=== PATIENT | female | born 1985 | race Caucasian/White ===

== ENCOUNTER 2016-03-21 17:29 | Emergency (ER) | payer OTHER, SELFPAY ==
--- NOTE | 2016-03-21 18:39 | ERRECORD ---
[facility] EMERGENCY RECORD HPI EYE COMPLAINT (18:12 BPIC) CHIEF COMPLAINT: Patient presents for evaluation of redness, to the right eye, Patient presents for evaluation of piece of metal in right eye. HISTORIAN: History provided by patient, pt was working on a car and drilling when a piece of metal fell into her eye. she was not wearing safety glasses at the time. this happened 5 days ago. sharp pain at the time. now just feels like a slight irritation and redness. ROS (18:13 BPIC) CONSTITUTIONAL: Negative constitutional review of systems. EYES: Historian reports eye pain, reports eye redness. ENT: Negative ears, nose, throat review of systems. CARDIOVASCULAR: Negative cardiovascular review of systems. RESPIRATORY: Negative respiratory review of systems. GI: Negative gastrointestinal review of systems. MUSCULOSKELETAL: Negative musculoskeletal review of systems. SKIN: Negative skin review of systems. PSYCHIATRIC: Negative psychiatric review of systems. PAST MEDICAL HISTORY MEDICAL HISTORY: Flu vaccine not up to date, Tetanus immunization up to date, Pneumococcal vaccine not up to date. PREECLAMPSIA. (SatMar 21, 2016 17:36 MDEB) FEMALE SURGICAL HISTORY: Surgical history of appendectomy, Surgical history of section X 2. (SatMar 21, 2016 17:36 MDEB) PSYCHIATRIC HISTORY: Notes: NONE. (SatMar 21, 2016 17:36 MDEB) SOCIAL HISTORY: Patient denies alcohol use, Patient denies drug use, Patient currently uses tobacco, smokes cigarettes, daily, Patient smokes 1 pack per day, Patient currently uses tobacco, smokes cigarettes, Patient smokes 1/2 packs per day, Patient denies alcohol use, Patient denies drug use, , Lives at home, with family. (SatMar 21, 2016 17:36 MDEB) NOTES: I have reviewed and agree with the PMH/PSxH/FamHx/SocHx obtained by the nurse. (18:13 BPIC) KNOWN ALLERGIES No Known Drug Allergies CURRENT MEDICATIONS No recorded medications VITAL SIGNS (17:34 MDEB) VITAL SIGNS: BP: 125/77, Pulse: 99, Resp: 20, Temp: 97.8 (Tympanic), Pain: 1, O2 sat: 100 on Room Air, Time: 03/21/2016 17:34. &a-1R&a+25V*p+0X*[id number]*c202B*c15G*c2P*p-0X&a-25V&a+1R Name: Penelope Teresa : 1985 F30 MedRec: [id number] AcctNum: [id number] Prepared: SatMar 21, 2016 21:22 by Interface Page 1 of 3 pMD [facility] EMERGENCY RECORD PHYSICAL EXAM (18:13 BPIC) CONSTITUTIONAL: Vital signs reviewed, Patient afebrile, Pulse normal, Blood pressure normal, Respiratory rate normal, Patient appears non toxic, Patient appears pain free, Patient alert and oriented to person, place and time. HEAD: Head exam included findings of head atraumatic, normocephalic. EYES: Eye exam included findings of eyelids normal to inspection, Pupils equally round and reactive to light, Extraocular muscles intact, Conjunctiva, injected on the right, Other eye unaffected, Fundoscopic exam normal, Corneal foreign body, metallic to the right eye, with slit lamp, rust ring appreciated to the right eye, on the corneal conjunctival margin at 4 o'clock. no metal remains., . ENT: Ear exam normal, Nose exam normal. NECK: Neck exam included findings of normal range of motion, Trachea midline. RESPIRATORY CHEST: Respiratory exam included findings of no respiratory distress, Chest exam included findings of chest movement symmetrical, Chest expansion equal. CARDIOVASCULAR: Cardiovascular exam included findings of heart rate regular rate and rhythm. NEURO: Neuro exam findings include patient oriented to person, place and time, Speech normal. PSYCHIATRIC: Psychiatric exam included findings of patient oriented to person place and time, Normal affect. DOCTOR NOTES (18:14 BPIC) TEXT: I discussed the diagnosis with the patient prior to discharge. All questions were answered. There is no indication for admission currently and the patient will follow up with a primary care physician. Any pertinent labs or imaging were reviewed and dicussed with the patient. If any new or emergent symptoms occur, the patient will return to the emergency department. PROBLEM LIST No recorded problems DIAGNOSIS (18:11 BPIC) FINAL: PRIMARY: rust ring in right eye. PRESCRIPTION (18:15 BPIC) Polytrim: DROPS : : OPHTHALMIC : Quantity: 2 Unit: gtt Route: OPHTHALMIC Schedule: 3 times a day Dispense: 1 May substitute. Refills: No Refills . NOTES: No Refills. DISPOSITION PATIENT: Disposition Type: Discharge, Disposition: *Discharge Home, Condition: Good. (18:11 BPIC) &a-1R&a+25V*p+0X*[id number]*c202B*c15G*c2P*p-0X&a-25V&a+1R Name: Penelope Teresa DOB: 1985 2 MedRec: [id number] AcctNum: [id number] Prepared: SatMar 21, 2016 21:22 by Interface Page 2 of 3 pMD [facility] EMERGENCY RECORD Patient left the department. (18:34 MDEB) Cagle: BPIC=MD Viviana, Sage HOGUEEB=CAPO Faith, Tamar &a-1R&a+25V*p+0X*[id number]*c202B*c15G*c2P*p-0X&a-25V&a+1R Name: Penelope Teresa : 1985 2 MedRec: [id number] AcctNum: [id number] Prepared: SatMar 21, 2016 21:22 by Interface Page 3 of 3 pMD MTDD
--- NOTE | 2016-03-21 18:50 | PICIS ---
[facility] EMERGENCY RECORD TRIAGE (SatMar 21, 2016 17:36 MDEB) PATIENT: NAME: Penelope Teresa, AGE: 30, GENDER: female, : Sat1985, TIME OF GREET: SatMar 21, 2016 17:30, PREFERRED LANGUAGE: Tristanian, RACE: WHITE, ETHNICITY: Not or , FALL RISK: NO, ECODE BILLING MAP: [facility], SSN: [id number], Zip Code: [address], KG WEIGHT: 58.51, PHONE: , , , PERSON ID: [id number], PCP: NO PCP. (SatMar 21, 2016 17:36 MDEB) TRIAGE NOTES: METAL IN R EYE FOR PAST 5 DAYS. (SatMar 21, 2016 17:36 MDEB) COMPLAINT: PIECE OF METAL IN RT EYE. (SatMar 21, 2016 17:36 MDEB) ADMISSION: URGENCY: 3 Urgent, ADMISSION SOURCE: Home, TRANSPORT: Walk-in, BED: TRIAGE. (SatMar 21, 2016 17:36 MDEB) PAIN: Patient complains of pain described as, aching, on a scale 0-10 patient rates pain as 1. (SatMar 21, 2016 17:36 MDEB) IMMUNIZATIONS: Tetanus immunization up to date. (SatMar 21, 2016 17:36 MDEB) TRIAGE SCREENING: Patient denies suicidal ideation, Patient denies presence of domestic violence. (SatMar 21, 2016 17:36 MDEB) PROVIDERS: TRIAGE NURSE: Tamar Faith RN. (SatMar 21, 2016 17:36 MDEB) VITAL SIGNS: BP 125/77, Pulse 99, Resp 20, Temp 97.8, (Tympanic), Pain 1, O2 Sat 100, on Room Air, Time 03/21/2016 17:34. (17:34 MDEB) PREVIOUS VISIT ALLERGIES: No Known Drug Allergies. (SatMar 21, 2016 17:36 MDEB) KNOWN ALLERGIES No Known Drug Allergies CURRENT MEDICATIONS No recorded medications VITAL SIGNS (17:34 MDEB) VITAL SIGNS: BP: 125/77, Pulse: 99, Resp: 20, Temp: 97.8 (Tympanic), Pain: 1, O2 sat: 100 on Room Air, Time: 03/21/2016 17:34. NURSING ASSESSMENT: EYE (17:40 MDEB) CONSTITUTIONAL: Patient arrives ambulatory, Gait steady, History obtained from patient, Patient appears, uncomfortable, Patient cooperative, Patient alert, Oriented to person, place and time, Skin warm, Skin dry, Skin normal in color, Mucous membranes pink, Mucous membranes moist, Patient is well-groomed, Patient complains of F B R EYE, METAL IN EYE FOR PAST 5 DAYS. PAIN: aching pain, on a scale 0-10 patient rates pain as 1, "UNCOMFORTABLE". EYES: Eye assessment findings include orbits normal, Eye lids normal, Conjunctiva normal, Sclera, normal on the left, injected on the right, Cornea clear, Iris normal, Pupils &a-1R&a+25V*p+0X*o4823J*c202B*c15G*c2P*p-0X&a-25V&a+1R Name: Penelope Teresa : 1985 F30 MedRec: [id number] AcctNum: [id number] Prepared: SatMar 21, 2016 21:28 by Interface Page 1 of 4 pMD [facility] EMERGENCY RECORD equally round and reactive to light, Left pupil 2 mm in size, Right pupil 2 mm in size, Associated with foreign body, metallic, to the right eye, Visual acuity performed, Left eye: 20/25, Right eye: 20/25, Both eyes: 20/25. NOTES: Emotional support needed and given, Patient tolerated procedure well. SAFETY: Cart/Stretcher in lowest position, Call light within reach, Hospital ID band on. NURSING PROCEDURE: DISCHARGE NOTE (18:20 MDEB) DISCHARGE: Patient discharged to home, ambulating without assistance, driving self, unaccompanied, Summary of Care printed/ provided, Patient requested and was provided an electronic copy of Discharge Instructions, Transition record given to patient, Discharge instructions given to patient, Prescriptions given and instructions on side effects given, Above person(s) verbalized understanding of discharge instructions and follow-up care, Patient treated and evaluated by physician. BELONGINGS: Belongings remain with patient, Valuables remain with patient. NOTES: Emotional support needed and given, Patient tolerated procedure well. HPI EYE COMPLAINT (18:12 BPIC) CHIEF COMPLAINT: Patient presents for evaluation of redness, to the right eye, Patient presents for evaluation of piece of metal in right eye. HISTORIAN: History provided by patient, pt was working on a car and drilling when a piece of metal fell into her eye. she was not wearing safety glasses at the time. this happened 5 days ago. sharp pain at the time. now just feels like a slight irritation and redness. ROS (18:13 BPIC) CONSTITUTIONAL: Negative constitutional review of systems. EYES: Historian reports eye pain, reports eye redness. ENT: Negative ears, nose, throat review of systems. CARDIOVASCULAR: Negative cardiovascular review of systems. RESPIRATORY: Negative respiratory review of systems. GI: Negative gastrointestinal review of systems. MUSCULOSKELETAL: Negative musculoskeletal review of systems. SKIN: Negative skin review of systems. PSYCHIATRIC: Negative psychiatric review of systems. PAST MEDICAL HISTORY MEDICAL HISTORY: Flu vaccine not up to date, Tetanus immunization up to date, Pneumococcal vaccine not up to date. PREECLAMPSIA. (SatMar 21, 2016 17:36 MDEB) FEMALE SURGICAL HISTORY: Surgical history of appendectomy, &a-1R&a+25V*p+0X*i6363U*c202B*c15G*c2P*p-0X&a-25V&a+1R Name: Penelope Teresa : 1985 F30 MedRec: [id number] AcctNum: [id number] Prepared: SatMar 21, 2016 21:28 by Interface Page 2 of 4 pMD [facility] EMERGENCY RECORD Surgical history of section X 2. (SatMar 21, 2016 17:36 MDEB) PSYCHIATRIC HISTORY: Notes: NONE. (SatMar 21, 2016 17:36 MDEB) SOCIAL HISTORY: Patient denies alcohol use, Patient denies drug use, Patient currently uses tobacco, smokes cigarettes, daily, Patient smokes 1 pack per day, Patient currently uses tobacco, smokes cigarettes, Patient smokes 1/2 packs per day, Patient denies alcohol use, Patient denies drug use, , Lives at home, with family. (SatMar 21, 2016 17:36 MDEB) NOTES: I have reviewed and agree with the PMH/PSxH/FamHx/SocHx obtained by the nurse. (18:13 BPIC) PHYSICAL EXAM (18:13 BPIC) CONSTITUTIONAL: Vital signs reviewed, Patient afebrile, Pulse normal, Blood pressure normal, Respiratory rate normal, Patient appears non toxic, Patient appears pain free, Patient alert and oriented to person, place and time. HEAD: Head exam included findings of head atraumatic, normocephalic. EYES: Eye exam included findings of eyelids normal to inspection, Pupils equally round and reactive to light, Extraocular muscles intact, Conjunctiva, injected on the right, Other eye unaffected, Fundoscopic exam normal, Corneal foreign body, metallic to the right eye, with slit lamp, rust ring appreciated to the right eye, on the corneal conjunctival margin at 4 o'clock. no metal remains., . ENT: Ear exam normal, Nose exam normal. NECK: Neck exam included findings of normal range of motion, Trachea midline. RESPIRATORY CHEST: Respiratory exam included findings of no respiratory distress, Chest exam included findings of chest movement symmetrical, Chest expansion equal. CARDIOVASCULAR: Cardiovascular exam included findings of heart rate regular rate and rhythm. NEURO: Neuro exam findings include patient oriented to person, place and time, Speech normal. PSYCHIATRIC: Psychiatric exam included findings of patient oriented to person place and time, Normal affect. EVENTS TRANSFER: Triage to Emergency Triage. (SatMar 21, 2016 17:36 MDEB) Emergency Triage to Main ED -02. (17:39 MDEB) Removed from Emergency Main ED -02. (18:34 MDEB) DOCTOR NOTES (18:14 BPIC) TEXT: I discussed the diagnosis with the patient prior to discharge. All questions were answered. There is no indication for admission currently and the patient will follow up with a primary &a-1R&a+25V*p+0X*x7732O*c202B*c15G*c2P*p-0X&a-25V&a+1R Name: Penelope Teresa : 1985 F30 MedRec: [id number] AcctNum: [id number] Prepared: SatMar 21, 2016 21:28 by Interface Page 3 of 4 pMD [facility] EMERGENCY RECORD care physician. Any pertinent labs or imaging were reviewed and dicussed with the patient. If any new or emergent symptoms occur, the patient will return to the emergency department. PROBLEM LIST No recorded problems DIAGNOSIS (18:11 BPIC) FINAL: PRIMARY: rust ring in right eye. DISPOSITION PATIENT: Disposition Type: Discharge, Disposition: *Discharge Home, Condition: Good. (18:11 BPIC) Patient left the department. (18:34 MDEB) INSTRUCTION (18:11 BPIC) DISCHARGE: CORNEAL FOREIGN BODY, REMOVED, W/ RUST RING. FOLLOWUP: Shavon YOU, HANNAH, Ophthalmology, [address] [place] [address], [phone]. SPECIAL: Thank you for choosing [facility] for your care today! Please follow up with your doctor in the next 2-3 days. Return to the emergency department with any emergent or worsening concerns. God Bless you!. PRESCRIPTION (18:15 BPIC) Polytrim: DROPS : : OPHTHALMIC : Quantity: 2 Unit: gtt Route: OPHTHALMIC Schedule: 3 times a day Dispense: 1 May substitute. Refills: No Refills . NOTES: No Refills. IMAGING (18:30 MDEB) *DISCHARGE INSTRUCTIONS RECEIPT: Image captured from scanner. *SUPPLY CHARGE SHEET: Image captured from scanner. ADMIN (21:14 BPIC) DIGITAL SIGNATURE: MD Viviana, Tyree. Cagle: BPIC=MD Viviana, Tyree MDEB=CAPO Faith, Tamar &a-1R&a+25V*p+0X*n4209R*c202B*c15G*c2P*p-0X&a-25V&a+1R Name: Penelope Teresa : 1985 F30 MedRec: [id number] AcctNum: [id number] Prepared: SatMar 21, 2016 21:28 by Interface Page 4 of 4 pMD MTDD
== END 2016-03-21 18:20 | disposition home or self-care (01) ==
LOC: MADERS 17:29
DX: T15.01XA Foreign body in cornea, right eye, initial encounter (principal); X58.XXXA Exposure to other specified factors, initial encounter; F17.210 Nicotine dependence, cigarettes, uncomplicated
CPT/HCPCS: 99283

== ENCOUNTER 2016-10-17 12:04 | Emergency (ER) | payer SELFPAY ==
[2016-10-17 12:46] LABS: Clarity Clear (Clear); Pregnancy Test - Urine (BHCG) Negative (Negative); Pregu Control Background? CLEAR/WHITE (CLR/WHITE); Pregu Control Bar Appear? YES (CONTROL BAR); Specific Gravity 1.025 (1.002-1.036); Specific Gravity, Urine 1.025 (1.005-1.030)
[2016-10-17 12:47] LABS: Bilirubin Negative (Negative); Blood, Urine Large (Negative); Glucose, Urine (Dipstick) Negative (Negative); Leukocyte Negative (Negative); Nitrite Positive (Negative); Protein, Urine (Dipstick) Trace mg/dL (Neg-Trace); Urobilinogen 0.2 mg/dL (0.2-1.0)
[2016-10-17 12:56] LABS: Bacteria/HPF 4+ HPF (None Seen); WBC/HPF 0-3 HPF (0-3)
[2016-10-17] MEDS ORDERED: HYDROcodone/Acetaminophen 5/325 mg Tablet ONE (13:55)
[2016-10-17] MEDS ORDERED: cefTRIAXone\\ROCEPHIN 1 GM VIAL ONE (13:56)
[2016-10-17] MEDS ORDERED: Ibuprofen 800 MG TAB ONE (13:56)
[2016-10-17] MEDS ORDERED: Lidocaine 1% 20 ML MDV ONE ×2 (13:56→14:01)
[2016-10-17] MEDS ORDERED: Azithromycin 250 MG TAB ONE (13:56)
[2016-10-17 14:10] LABS: #Basophils 0.1 thou/uL (0.0-0.2); #Eosinphils 0.5 thou/uL (0.0-0.7); #Lymphocytes 2.8 thou/uL (1.20-3.40); #Monocytes 0.7 thou/uL (0.11-0.59); #Neutrophils 7.2 thou/uL (1.40-6.50); %Basophils 1.1 % (0.0-1.0); %Eosinophils 4.7 % (0.0-10.0); %Lymphocytes 24.4 % (21.0-51.0); %Monocytes 6.2 % (0.0-10.0); %Neutrophils 63.6 % (42.0-75.0); Mean Corpuscular HGB CONC 33.4 g/dL (32.0-36.0); Mean Corpuscular Hemoglobin 30.8 pg (27.0-31.0); Mean Corpuscular Volume 92.3 fl (81.0-99.0); Mean Platelet Volume 6.6 fL (7.4-10.4); Platelet Count 343 thou/uL (130-400); RBC Distribution Width 11.8 % (11.5-14.5); Red Blood Cell (RBC) Count 3.89 mill/uL (4.20-5.40); White Blood Cell (WBC) Count 11.3 thou/uL (4.8-10.8)
--- NOTE | 2016-10-17 14:39 | ULT ---
EXAM: PELVIC ULTRASOUND: HISTORY: The patient had an elective 3 weeks ago. The patient is now having pelvic pain, along with bleeding and passing of clots, starting 8 hours ago. COMPARISON: None. TECHNIQUE: Transabdominal and endovaginal imaging of the pelvis performed. Ovaries interrogated with watson scal e, color flow, Doppler imaging, and spectral waveform analysis. FINDINGS: A uterus is identified, measuring 9.4 x 4.5 x 4.4 cm. Endometrium is thickened and has a heterogene ous echotexture. Endometrium measures 1.5 cm. From the mid uterus down to the lower uterine segmen t, there is an ill-defined hypoechoic area measuring 4.9 x 1.3 cm. Based on image provided, it is d ifficult to determine if this hypoechoic area is within the endometrial canal or may be submucosal i n location. There does not appear to be any vascular flow. The right ovary measures 1.8 x 3.4 x 1.5 cm. There is a hypoechoic area of the right ovary measurin g 1.2 x 1.8 x 1.2 cm. The possibility of a complex/hemorrhagic cyst is raised. There is an anechoic focus in the left ovary measuring 3.1 x 1.4 x 2.9 cm. Overall, the left ovary measures 3.7 x 3.0 x 2.3 cm. A left ovarian cyst is favored. There is no free fluid. OVARIAN DOPPLER: There is vascular flow to the right and left ovaries. IMPRESSION: Hypoechoic area involving the mid to lower uterine segment, presumed to be within the endometrium. Absence of flow. The possibility of a large blood clot is raised. Retained products of conception cannot be excluded. Correlate with serum beta HCC. Consider EVENT ATTENDANT consultation. POS: [facility]OM[facility]
[2016-10-21 13:09] LABS: Chlamydia trachomatis by NAA Negative (Negative)
== END 2016-10-17 16:14 | disposition home or self-care (01) ==
LOC: MADERS 12:04
DX: N93.9 Abnormal uterine and vaginal bleeding, unspecified (principal); F17.210 Nicotine dependence, cigarettes, uncomplicated
CPT/HCPCS: 36415; 76856; 81003; 81015; 81025; 84702; 85025; 86900; 86901; 87491; 87591; 96372; J0696; J2001

== ENCOUNTER 2017-04-01 16:59 | Emergency (ER) | payer SELFPAY | END 2017-04-01 18:09 | disposition home or self-care (01) | LOC: MADERS 16:59 | DX: J11.1 Influenza due to unidentified influenza virus with other respiratory manifestations (principal); F17.210 Nicotine dependence, cigarettes, uncomplicated | CPT/HCPCS: 99283 ==

== ENCOUNTER 2020-08-08 21:15 | Emergency (ER) | payer SELFPAY ==
[2020-08-08] MEDS ORDERED: Ondansetron ODT 4 MG TAB ONE ×3 (21:56→23:16)
[2020-08-08] MEDS ORDERED: Metoprolol Tartrate 50 MG TAB ONE (21:56)
[2020-08-08 22:07] LABS: #Eosinphils 0.1 thou/uL (0.0-0.7); #Lymphocytes 2.3 thou/uL (1.20-3.40); #Monocytes 0.6 thou/uL (0.11-0.59); #Neutrophils 2.6 thou/uL (1.40-6.50); %Basophils 0.3 % (0.0-1.0); %Eosinophils 2.6 % (0.0-10.0); %Lymphocytes 40.3 % (21.0-51.0); %Monocytes 11.2 % (0.0-10.0); %Neutrophils 45.6 % (42.0-75.0); Hemoglobin 14.5 g/dL (12.0-16.0); Mean Corpuscular Hemoglobin 29.4 pg (27.0-31.0); Mean Corpuscular Volume 91.8 fL (78.0-98.0); Mean Platelet Volume 7.6 fL (7.4-10.4); Platelet Count 284 thou/uL (130-400); RBC Distribution Width 11.1 % (11.5-14.5); Red Blood Cell (RBC) Count 4.93 mill/uL (4.20-5.40); White Blood Cell (WBC) Count 5.7 thou/uL (4.8-10.8)
[2020-08-08 22:28] LABS: ALT (SGPT) 37 U/L (8-55); AST (SGOT) 26 U/L (5-34); Albumin 4.2 g/dL (3.5-5.0); Alkaline Phosphatase 81 U/L (40-110); Anion Gap 16 mmol/L (10-20); BUN (Urea Nitrogen) 14 mg/dL (7.0-18.7); Bilirubin, Total 0.3 mg/dL (0.2-1.2); Calc. Creatinine Clearance 0 mL/min (70-130); Carbon Dioxide 22 mmol/L (22-29); Chloride 105 mmol/L (98-107); Globulin 3.1 g/dL (2.4-3.5); Glucose 95 mg/dL (70-105); Potassium 3.8 mmol/L (3.5-5.1); Protein, Total 7.3 g/dL (6.0-8.3); Sodium 139 mmol/L (136-145)
[2020-08-08 22:47] LABS: Bilirubin Negative (Negative); Blood, Urine Negative (Negative); Clarity Clear (Clear); Glucose, Urine (Dipstick) Negative (Negative); Ketone, Urine Negative (Negative); Leukocyte Negative (Negative); Nitrite Positive (Negative); Protein, Urine (Dipstick) Negative (Neg-Trace); Urobilinogen 0.2 mg/dL (Less than 2); pH, Urine 6.5 (5.0-9.0)
[2020-08-08 22:48] LABS: Pregnancy Test - Urine (BHCG) Negative (Negative); Pregu Control Background? CLEAR/WHITE (CLR/WHITE); Pregu Control Bar Appear? YES (CONTROL BAR)
[2020-08-08 22:51] LABS: Bacteria/HPF 4+ HPF (None Seen); RBC/HPF None Seen HPF (0-3); Squamous Epithelial 0-3 HPF (0-3)
[2020-08-08 22:55] LABS: Amphetamine Not Detected (NotDetected); Barbiturates Screen Not Detected (NotDetected); Benzodiazepine Screen Not Detected (NotDetected); Cocaine Metabolite Screen Not Detected (NotDetected); Medtox Control Line Valid? VALID (VALID); Methadone Not Detected (NotDetected); Methamphetamine Not Detected (NotDetected); Opiate Screen Not Detected (NotDetected); Oxycodone Screen Not Detected (NotDetected); Phencyclidine (PCP) Not Detected (NotDetected); THC/Cannabinoid Screen Not Detected (NotDetected); Tricyclic Screen Not Detected (NotDetected)
[2020-08-08] MEDS ORDERED: Ketorolac Tromethamine 30 MG/ML VIAL ONE (23:10)
== END 2020-08-08 23:46 | disposition home or self-care (01) ==
LOC: MADERS 21:15
DX: I10 Essential (primary) hypertension (principal); R51.9 Headache, unspecified; R11.2 Nausea with vomiting, unspecified; F17.210 Nicotine dependence, cigarettes, uncomplicated
CPT/HCPCS: 36415; 71045; 80053; 80306; 81003; 81015; 81025; 84443; 84484; 85025; 93005; 96372; J1885; Q0162

== ENCOUNTER 2021-10-05 18:52 | Emergency (ER) | payer SELFPAY ==
[2021-10-05] MEDS ORDERED: Fluorescein Opthalmic Strip ONE (19:41)
[2021-10-05] MEDS ORDERED: Bacitracin 1 PK ONE (19:41)
[2021-10-05] MEDS ORDERED: Tetracaine 0.5% PF 4 ML BOT ONE (19:41)
== END 2021-10-05 21:25 | disposition home or self-care (01) ==
LOC: MADERS 18:52
DX: S01.81XA Laceration without foreign body of other part of head, initial encounter (principal); S05.11XA Contusion of eyeball and orbital tissues, right eye, initial encounter; S05.01XA Injury of conjunctiva and corneal abrasion without foreign body, right eye, initial encounter; I10 Essential (primary) hypertension; F17.210 Nicotine dependence, cigarettes, uncomplicated; Z79.899 Other long term (current) drug therapy; W22.8XXA Striking against or struck by other objects, initial encounter
CPT/HCPCS: 70486

== ENCOUNTER 2023-05-31 19:48 | Emergency (ER) | payer SELFPAY ==
[2023-05-31 21:08] LABS: Bilirubin Negative (Negative); Blood, Urine Negative (Negative); Glucose, Urine (Dipstick) Negative (Negative); Ketone, Urine Negative (Negative); Leukocyte Negative (Negative); Nitrite Positive (Negative); Protein, Urine (Dipstick) Negative (Neg-Trace); Specific Gravity, Urine 1.025 (1.005-1.030); Urobilinogen 0.2 mg/dL (Less than 2)
[2023-05-31 21:11] LABS: Bacteria/HPF 3+ HPF (None Seen); CAUTI Indications for Culture Dysuria,urgency,freq; Clarity Cloudy (Clear); Mucous/LPF 1+ LPF (<2+); RBC/HPF None Seen HPF (0-3); WBC/HPF 0-3 HPF (0-3)
[2023-05-31 21:13] LABS: Pregnancy Test - Urine (BHCG) Negative (Negative); Pregu Control Background? CLEAR/WHITE (CLR/WHITE); Pregu Control Bar Appear? YES (CONTROL BAR); Specific Gravity 1.025 (1.002-1.036); Urine Culture Reflex No No
== END 2023-05-31 22:25 | disposition home or self-care (01) ==
LOC: MADERS 19:48
DX: R10.2 Pelvic and perineal pain (principal); R82.71 Bacteriuria; I10 Essential (primary) hypertension; F17.210 Nicotine dependence, cigarettes, uncomplicated
CPT/HCPCS: 81001; 81025; 87077; 87086; 87186; 87480; 87510; 87660; 99283